=== PATIENT | female | born 1985 | race Caucasian/White ===

== ENCOUNTER 2021-06-21 12:24 | Inpatient (IN) | payer BC, MEDICAID, SELFPAY ==
--- NOTE | ~2021-06-21 | CT_ITS ---
EXAMINATION: CT orbit BI w con DATE: 06/21/2021 15:29 INDICATION: Left orbital cellulitis. TECHNIQUE: Computed tomography (CT) of the orbits was performed with 75 mL Omnipaque 300 intravenous contrast. Automated exposure control and iterative reconstruction technique were employed. The dose-l ength product was 173.13 mGy-cm. COMPARISON: CT maxillofacial 03/09/2010 FINDINGS: There is soft tissue swelling of the left periorbital region and left cheek. No orbital inv olvement. The extraocular muscles and optic nerves are normal. There is mild mucosal thickening in th e paranasal sinuses. The mastoid air cells are normal. IMPRESSION: 1. Soft tissue swelling of the left periorbital region and left cheek. No orbital involvement. Reviewed, dictated and finalized at location A. IMPRESSION: 1. Soft tissue swelling of the left periorbital region and left cheek. No orbit al involvement.
[2021-06-21 12:35] VITALS: BP 111/80; PULSE 102; RESP 18; TEMP 36.2; O2SAT 99
[2021-06-21] MEDS: SODIUM CHLORIDE 0.9% IV 1,000 ML 999 ML IV CONT (14:50)
[2021-06-21 14:52] LABS: Basophils Absolute Auto 0.1 K/mm3 (0.0-0.1); Basophils Percent Auto 0.7 % (0.2-1.2); Eosinophils Absolute Auto 0.3 K/mm3 (0-0.3); Eosinophils Percent Auto 3.9 % (0-4.4); Hematocrit 41.5 % (37.0-47.0); Hemoglobin 13.8 g/dL (12.0-15.0); Immature Granulocyte Absolute 0.03 K/mm3 (0.00-0.031); Immature Granulocyte Percent A 0.4 % (0-0.5); Lymphocytes Absolute Auto 2.65 K/mm3 (0.9-3.2); Lymphocytes Percent Auto 38.6 % (18.3-44.2); Mean Corpuscular HGB Conc 33.3 g/dl (32-36); Mean Corpuscular Hemoglobin 29.4 pg (26-34); Mean Corpuscular Volume 88.3 fl (80-100); Mean Platelet Volume 8.9 fl (7.4-10.4); Monocytes Absolute Auto 1.2 K/mm3 (0.1-0.6); Monocytes Percent Auto 16.8 % (2.6-8.5); Neutrophils Absolute Auto 2.7 K/mm3 (1.3-6.7); Neutrophils Percent Auto 39.6 % (45.5-73.1); Platelet Count Result 352 k/mm3 (150-375); Red Cell Distribution Width 13.2 % (11.5-14.5); White Blood Count 6.9 K/mm3 (4.5-10.0)
[2021-06-21 15:14] LABS: Alanine Aminotransferase 27 U/L (6-35); Alkaline Phosphatase 93 U/L (38-126); Anion Gap 11 mmol/L (8-16); Aspartate Amino Transferase 37 U/L (14-36); Bilirubin,Total 0.5 mg/dL (0.2-1.3); Blood Urea Nitrogen 22 mg/dL (7-17); Calcium 9.2 mg/dL (8.4-10.2); Carbon Dioxide 31 mmol/L (22-30); Chloride 96 mmol/L (98-107); Estimated CRCL calculation 60 ml/min; Estimated Glomerular Filt Rate > 60; Glucose 106 mg/dL (65-110); Lactate Dehydrogenase 538 U/L (313-618); Potassium 3.8 mmol/L (3.4-5.0); Sodium 138 mmol/L (137-145)
[2021-06-21 15:21] LABS: Lactic Acid Reflex 1.1 mmol/L (0.7-2.0)
--- NOTE | 2021-06-21 15:23 | ED.SKABFB ---
HPI - Skin/Abscess/Foreign Bdy General Chief complaint: Skin/Abscess/Foreign Body Stated complaint: eye problem Time Seen by Provider: 06/21/21 14:03 Source: patient Mode of arrival: ambulatory Limitations: no limitations History of Present Illness HPI narrative: 36-year-old female presents with increasing left eye redness, warmth, and pain. Patient states Friday she noticed what looked like a pimple to the left eyebrow. Patient went to [facility] care and was prescribed Bactrim for possible MRSA infection. Patient states wound has gotten bigger and now left eyelid is swollen. Patient denies fevers. Patient has no history of skin infection. MD complaint: abscess/boil Onset (ago): day(s) (4) Tetanus up to date: unsure Location: face Relieving factors: none Exacerbating factors: none Context: none Associated symptoms: denies other symptoms Treatments prior to arrival: none Related Data Home Medications Medication Instructions Recorded Confirmed No Home Medications 06/21/21 06/21/21 Allergies Allergy/AdvReac Type Severity Reaction Status Date / Time naproxen Allergy Mild Gastrointestinal Verified 06/21/21 13:47 Upset Penicillins Allergy Unresponsiv Verified 06/21/21 13:47 e Review of Systems Review of Systems: All systems reviewed & are unremarkable except as noted in HPI and below Constitutional: Constitutional: Reports no additional constitutional complaints Eyes: Eyes: Reports no additional eye complaints ENT: Reports system reviewed and no additional complaints, except as documented Cardiovascular: Cardiovascular: Reports no additional cardiovascular complaints Respiratory: Respiratory: Reports no additional respiratory complaints Gastrointestinal: Gastrointestinal: Reports no additional gastrointestinal complaints Genitourinary: Genitourinary: Reports no additional female genitourinary complaints Musculoskeletal: Musculoskeletal: Reports no additional musculoskeletal complaints Integumentary/Breasts: Skin/Breast: Reports erythema Neurologic: Reports system reviewed and no additional complaints, except as documented Psychiatric: Psychiatric: Reports no additional psychiatric complaints Endocrine: Endocrine: Reports no additional endocrine complaints Hematologic/Lymphatic: Hematologic/Lymphatic: Reports no additional hematologic/lymphatic complaints Allergic/Immunologic: Allergic/Immunologic: Reports no additional allergic/immunologic complaints Exam Narrative: General appearance: Well-developed, well-nourished Skin: Left eyebrow and upper lid redness, with swelling, open sore with no drainage, Head: Normocephalic, nontraumatic Eyes: Clear conjunctiva, normal extraocular movement ENT: Oropharynx normal, ears normal, nose normal Neck: Supple, nontender Chest and respiratory: Airway patent, no respiratory distress, no accessory muscle use Heart: Regular rate/rhythm Abdomen: Soft, nontender, no organomegaly, quiet bowel sounds Vascular: Normal peripheral pulses, normal capillary refill. Musculoskeletal: Normal range of motion, nontender back Neurologic: Alert and oriented ?3, FISH ICER is normal as tested, no gross motor deficit Course Course Emergency Course: Patient failed outpatient oral antibiotics. Patient will be admitted for IV antibiotics. Patient accepted by Yanique with the hospitalist team Consultations Consultation #1: Taina Chanel Date: 06/21/21 Time: 15:58 Vital Signs Vital signs: Vital Signs Temperature 36.2 C L 06/21/21 12:35 Pulse Rate 102 H 06/21/21 12:35 Respiratory Rate 18 06/21/21 12:35 Blood Pressure 111/80 06/21/21 12:35 Pulse Oximetry 99 06/21/21 12:35
--- NOTE | 2021-06-21 16:40 | PM.IMHP ---
H&P: HPI History of Present Illness Date/Time: 06/21/21 16:40 Chief Complaint: Left eyelid swelling. Narrative: This is a pleasant 36-year-old female smoker with history of MRSA skin and soft tissue infection who presented to the emergency department for evaluation of left eyelid swelling. About 10 days ago she developed a handful of small, scattered red papules on her face and to a lesser extent on the chest and back. Within several days time, the papules on her face grew in size and began to spontaneously drain serous fluid. She was seen at a local urgent care on Friday at which time she was prescribed Bactrim and prednisone of which she has been compliant. Several of the wounds around her mouth have dried out however 1 near her left eyebrow has continued to grow in size and yesterday she noticed redness and swelling about the left eyelid. It was worse this morning and she came in for evaluation. Orbital CT shows soft tissue swelling of the left periorbital region and left cheek and mild mucosal thickening in the paranasal sinuses, with no evidence of orbital involvement. At the time my evaluation she is resting comfortably. She does mention sinus congestion and rhinorrhea though she has blamed that on her allergies. Her left eyelid and eyebrow or uncomfortable but she is having no pain with extraocular motions. She denies fever, chills, and sweats. Appetite has been good and she has not had nausea or vomiting. To her knowledge, she has not been around anybody with similar symptoms or active MRSA though she was recently incarcerated for 1.5 months. Review of Systems Review of Systems: Twelve systems were reviewed and are negative except for as per HPI. [facility] Past Medical History Medical History (Updated 06/21/21 @ 22:18 by Yanique Pagan PA-C) Chronic back pain MRSA infection Nicotine dependence Osteoporosis Surgical History Surgical History (Updated 06/21/21 @ 22:14 by Yanique Pagan PA-C) History of 2 sections History of foot surgery History of tubal ligation History of tympanostomy tube placement History of wisdom tooth extraction Family History Family History Other Unknown family medical history Social History Social History (Updated 06/21/21 @ 22:14 by Yanique Pagan PA-C) Social History: Surrogate decision maker: Rigo Cortes, father. Code status: Full code. Smoking packs per day: 1 Smoking cigarettes per day: 20.0 Years smoked: 20 Smoking pack-years: 20.00 Smoking status: Current every day smoker Tobacco type: cigarettes Substance use: former Substance use type: does not use Other substance usage details: Former prescription opioid addiction. Additional living arrangements comments: Currently living with her mother in [place]. Additional occupation/education comments: Not currently employed. Spiritual care concerns: No Meds Home Medications and Allergies Home Medications Medication Instructions Recorded Confirmed Type No Home Medications 06/21/21 06/21/21 History Allergies Allergy/AdvReac Type Severity Reaction Status Date / Time naproxen Allergy Mild Gastrointestinal Verified 06/21/21 13:47 Upset Penicillins Allergy Unresponsiv Verified 06/21/21 13:47 e Vital Signs Vital Signs - 24 hr 06/21/21 12:35 Temperature 97.1 F L Pulse Rate 102 H Respiratory Rate 18 Blood Pressure 111/80 Pulse Oximetry 99 Exam Narrative: General: Well-developed female sitting up in bed in no distress. Weight: 54 kg. BMI: 23.3. HEENT: There is and proximally 1 cm circular, crusted wound over the left lateral eyebrow with surrounding erythema and edema tracking down to the left eyelid. Extraocular motions are intact. Pupils are equal and reactive. Several other scattered, crusted lesions around the mouth without evidence of acute infection. Moist mucous membranes. Neck: Supple
[2021-06-21 16:46] LABS: SARS-CoV-2 RNA PCR Negative
[2021-06-21] MEDS: NICOTINE (*PBKC) 21 MG PATCH 1 PATCH TRANSDERM (18:41)
--- NOTE | 2021-06-21 19:12 | PC.NURSE ---
Report taken from NIC Ruiz.
[2021-06-21 19:23] VITALS: BP 108/69; PULSE 77; RESP 16; O2SAT 100
[2021-06-21] MEDS: traMADol HCL (*CRX) 50 MG TABLET PO (19:29)
[2021-06-21 20:26] VITALS: BMI 23.2
--- NOTE | 2021-06-21 20:28 | ADMGEN ---
This patient, Madonna Cortes, was admitted to [facility] Surg Room 314-01. Patient/family oriented to hospital policies and general routines including ID bracelet, bed and alarms, visiting hours, pain management, procedures, bathroom and other care routines, personal items, smoking policy, room service/diet, and visiting hours. Information on how to activate the Rapid Response Team has been discussed. Patient/Family are encouraged to report perceived risks to care and to ask questions if they do not understand what they are told or what they should do.
[2021-06-21 20:36] VITALS: PULSE 71; RESP 16; O2SAT 100
[2021-06-21 20:42] VITALS: BP 124/65; PULSE 71; RESP 16; TEMP 36.3; O2SAT 100
[2021-06-21 22:35] VITALS: O2SAT 99
[2021-06-22 06:00] VITALS: BP 110/64; PULSE 74; RESP 16; TEMP 36.2; O2SAT 97
[2021-06-22] MEDS: ACETAMINOPHEN 325 MG TABLET 650 MG PO (10:30)
[2021-06-22] MEDS: NICOTINE (*PBKC) 21 MG PATCH 1 PATCH TRANSDERM (10:31)
[2021-06-22 13:56] VITALS: O2SAT 99
[2021-06-22 14:00] VITALS: BP 101/56; PULSE 63; RESP 16; TEMP 36.1; O2SAT 100
--- NOTE | 2021-06-22 14:30 | PM.IMPN ---
Progress Note: A&P Assessment and Plan (1) Periorbital cellulitis of left eye: Code(s): L03.213 - Periorbital cellulitis Status: Acute Assessment and Plan: Presented with left eyebrow wound with associated left periorbital edema Orbital CT showed soft tissue swelling of the left periorbital region and cheek with no orbital involvement Patient does have history of MRSA, suspect acute MRSA infection Continue IV ceftriaxone and vancomycin, day #2 Supportive care. Elevate head of bed. Ice. Warm compress. For evaluation of pustules, will proceed with HIV, RPR, varicella IgG/IgM, and CMV IgG/IgM Blood cultures pending Patient afebrile, no leukocytosis (2) Nicotine dependence: Code(s): F17.200 - Nicotine dependence, unspecified, uncomplicated Status: Acute Assessment and Plan: Patient smokes 1 pack per day Smoking cessation is imperative for wound healing Continue nicotine patch prior patient request (3) History of MRSA infection: Code(s): Z86.14 - Personal history of Methicillin resistant Staphylococcus aureus infection Status: Acute Assessment and Plan: MRSA nasal swab pending. Await results. Consider nasal mupirocin and chlorhexidine bath based on results Subjective Date/time seen: 06/22/21 14:30 Interval history: Date of service: 06/22/2021 Madonna Cortes is a 36-year-old female with a history of nicotine dependence osteoporosis, MRSA infection, and recent incarceration who is seen in follow up periorbital cellulitis. She continues to endorse eyelid swelling today. She has not noted much improvement. States it was worse this morning after she was laying down to sleep. Discussed keeping her head of bed elevated. She denies any drainage from the wound on her left eyelid. Denies pruritus. No visual changes. Reports typical visual acuity. Denies fevers, chills, nausea, vomiting. No shortness breath, cough, chest pain, palpitations dizziness, lightheadedness. Appetite is good. Denies drug use. Review of Systems Review of Systems: All systems reviewed & are unremarkable except as noted in HPI and below Exam Narrative: General: Well-nourished 36-year-old female, sitting up in bed, comfortable, NARD Neuro: awake, alert and oriented x4, speech clear, no focal neuro deficits noted HEENMT: normocephalic, atraumatic, EOMI, sclerae anicteric, erythema and edema of left upper eyelid Respiratory: clear to auscultation bilaterally, nonlabored breathing Cardio: regular rate, regular rhythm with S1-S2 Abdomen: nondistended, normoactive bowel sounds, soft, nontender to palpation Extremities: no edema, erythema, or tenderness to palpation, DP pulses 2+ bilaterally Skin: Approximately 1 cm circular superficial ulceration of the left upper eyebrow without purulence or drainage, surrounding edema and erythema of the eyelids, scattered crusted lesions surrounding the mouth, very few on chest and back, warm and dry Psych: appropriate mood and affect, judgment and insight intact Objective Data Vital Signs Vital Signs: Vital Signs - 24 hr 06/21/21 19:23 06/21/21 20:36 06/21/21 20:42 Temperature 97.3 F L Pulse Rate 77 71 71 Respiratory Rate 16 16 16 Blood Pressure 108/69 124/65 Pulse Oximetry 100 100 100 06/21/21 22:35 06/22/21 06:00 06/22/21 13:56 Temperature 97.2 F L Pulse Rate 74 Respiratory Rate 16 Blood Pressure 110/64 Pulse Oximetry 99 97 99 Intake/Output Intake/Output: Intake & Output 06/19/21 06/20/21 06/21/21 06/22/21 23:59 23:59 23:59 23:59 Intake Total 1250 1137 Balance 1250 1137 Meds/Results Medications: Active Medications Generic Name Dose Route Start Last Admin Trade Name Freq PRN Reason Stop Dose Admin Acetaminophen 650 mg 06/21/21 16:03 06/22/21 10:30 Acetaminophen 325 Mg Tablet PO 650 mg Q4H PRN Administration Mild Pain (1-3) or Fever Acetaminophen 650 mg 06/21/21 16:46 Acetami
[2021-06-22 15:50] LABS: HIV 1/2 Ab P24 Ag Result Negative (Negative)
[2021-06-22 21:50] VITALS: O2SAT 98
[2021-06-22 22:00] VITALS: BP 108/58; PULSE 68; RESP 18; TEMP 36.7; O2SAT 98
[2021-06-22] MEDS: HYDROcodone/acetaminophen (*CRX) 7.5-325 MG TABLET 1 TAB PO (23:11)
[2021-06-23 05:44] VITALS: BP 108/69; PULSE 77; RESP 17; TEMP 37.1; O2SAT 97
[2021-06-23] MEDS: NICOTINE (*PBKC) 21 MG PATCH 1 PATCH TRANSDERM (08:11)
[2021-06-23 10:39] LABS: Hematocrit 34.4 % (37.0-47.0); Hemoglobin 11.3 g/dL (12.0-15.0); Mean Corpuscular HGB Conc 32.8 g/dl (32-36); Mean Corpuscular Hemoglobin 29.4 pg (26-34); Mean Corpuscular Volume 89.4 fl (80-100); Mean Platelet Volume 8.8 fl (7.4-10.4); Platelet Count Result 289 k/mm3 (150-375); Red Blood Count 3.85 M/mm3 (4.2-5.4); Red Cell Distribution Width 12.9 % (11.5-14.5); White Blood Count 7.5 K/mm3 (4.5-10.0)
[2021-06-23 11:01] LABS: Anion Gap 5 mmol/L (8-16); Blood Urea Nitrogen 16 mg/dL (7-17); CRP 0.6 mg/dL (<1.0); Calcium 8.1 mg/dL (8.4-10.2); Carbon Dioxide 27 mmol/L (22-30); Chloride 105 mmol/L (98-107); Estimated CRCL calculation 67 ml/min; Estimated Glomerular Filt Rate > 60; Glucose 106 mg/dL (65-110); Potassium 4.5 mmol/L (3.4-5.0); Sodium 137 mmol/L (137-145)
--- NOTE | 2021-06-23 11:34 | PM.IMPN ---
Progress Note: A&P Assessment and Plan (1) Periorbital cellulitis of left eye: Code(s): L03.213 - Periorbital cellulitis Status: Acute Assessment and Plan: Presented with left eyebrow wound with associated left periorbital edema Orbital CT showed soft tissue swelling of the left periorbital region and cheek with no orbital involvement Patient does have history of MRSA, suspect acute MRSA infection Continue IV ceftriaxone and vancomycin, day #3 Supportive care. Elevate head of bed. Ice. Warm compress. For evaluation of pustules: HIV screening negative, RPR, varicella IgG/IgM, and CMV IgG/IgM pending Preliminary blood cultures negative to date Patient afebrile, no leukocytosis Improved on exam today. Monitor overnight and plan for discharge tomorrow on PO antibiotics if continued improvement (2) Nicotine dependence: Code(s): F17.200 - Nicotine dependence, unspecified, uncomplicated Status: Acute Assessment and Plan: Patient smokes 1 pack per day Smoking cessation is imperative for wound healing Continue nicotine patch per patient request (3) History of MRSA infection: Code(s): Z86.14 - Personal history of Methicillin resistant Staphylococcus aureus infection Status: Acute Assessment and Plan: MRSA nasal swab pending. Await results. Consider nasal mupirocin and chlorhexidine bath based on results Subjective Date/time seen: 06/23/21 11:34 Interval history: Date of service: 06/23/2021 Madonna Cortes is a 36-year-old female with a history of nicotine dependence osteoporosis, MRSA infection, and recent incarceration who is seen in follow up periorbital cellulitis. She is feeling better today. Feels that her swelling has improved. She is having less discomfort overall and rates her pain as 3/10 in the periorbital region. Denies visual changes. Denies facial pain. No congestion, no dysphagia, no speech changes. She reports no changes to the scattered crusted wounds around her mouth. Denies pruritus. Denies drainage or purulence from wounds. She has no additional concerns. Denies shortness of breath, cough, chest pain, nausea, vomiting, fever, chills, abdominal pain, headache. She is eating well, sleeping well, reports regular bowel movements and no issues with urination. She is eager for discharge home Review of Systems Review of Systems: All systems reviewed & are unremarkable except as noted in HPI and below Exam Narrative: General: Well-nourished 36-year-old female, sitting up in bed, comfortable, NARD Neuro: awake, alert and oriented x4, speech clear, no focal neuro deficits noted HEENMT: normocephalic, atraumatic, EOMI, sclerae anicteric, improved erythema and edema of left upper eyelid Respiratory: clear to auscultation bilaterally, nonlabored breathing Cardio: regular rate, regular rhythm with S1-S2 Abdomen: nondistended, normoactive bowel sounds, soft, nontender to palpation Extremities: no edema, erythema, or tenderness to palpation, DP pulses 2+ bilaterally Skin: Approximately 1 cm superficial ulceration of the left upper eyebrow without purulence or drainage, surrounding edema and erythema of the upper eyelid, scattered crusted lesions surrounding the mouth, very few on chest and back, warm and dry Psych: appropriate mood and affect, judgment and insight intact Objective Data Vital Signs Vital Signs: Vital Signs - 24 hr 06/22/21 13:56 06/22/21 14:00 06/22/21 21:50 Temperature 97 F L Pulse Rate 63 Respiratory Rate 16 Blood Pressure 101/56 L Pulse Oximetry 99 100 98 06/22/21 22:00 06/23/21 05:44 Temperature 98.0 F 98.8 F Pulse Rate 68 77 Respiratory Rate 18 17 Blood Pressure 108/58 L 108/69 Pulse Oximetry 98 97 Intake/Output Intake/Output: Intake & Output 06/20/21 06/21/21 06/22/21 06/23/21 23:59 23:59 23:59 23:59 Intake Total 1250 3017 540 Balance 1250 3017 540 Meds/Results Medications: Activ
[2021-06-23 14:00] VITALS: BP 94/57; PULSE 69; RESP 18; TEMP 36.6; O2SAT 99
[2021-06-23 21:54] VITALS: BP 104/57; PULSE 81; RESP 18; TEMP 36.4; O2SAT 97
[2021-06-23 21:56] LABS: Vancomycin Trough 5.3 ug/mL (10.0-20.0)
[2021-06-23] MEDS: ACETAMINOPHEN 325 MG TABLET 650 MG PO (22:48)
[2021-06-24 06:00] VITALS: BP 105/56; PULSE 64; RESP 18; TEMP 36.7; O2SAT 97
[2021-06-24 07:52] LABS: Hematocrit 38.1 % (37.0-47.0); Hemoglobin 12.5 g/dL (12.0-15.0); Mean Corpuscular HGB Conc 32.8 g/dl (32-36); Mean Corpuscular Hemoglobin 29.4 pg (26-34); Mean Corpuscular Volume 89.6 fl (80-100); Mean Platelet Volume 8.9 fl (7.4-10.4); Platelet Count Result 326 k/mm3 (150-375); Red Blood Count 4.25 M/mm3 (4.2-5.4); Red Cell Distribution Width 12.9 % (11.5-14.5); White Blood Count 4.5 K/mm3 (4.5-10.0)
[2021-06-24 08:03] LABS: Anion Gap 4 mmol/L (8-16); Blood Urea Nitrogen 15 mg/dL (7-17); Calcium 8.4 mg/dL (8.4-10.2); Carbon Dioxide 30 mmol/L (22-30); Chloride 103 mmol/L (98-107); Estimated CRCL calculation 67 ml/min; Estimated Glomerular Filt Rate > 60; Glucose 93 mg/dL (65-110); Potassium 4.5 mmol/L (3.4-5.0); Sodium 137 mmol/L (137-145)
[2021-06-24] MEDS: ACETAMINOPHEN 325 MG TABLET 650 MG PO (08:03)
[2021-06-24] MEDS: NICOTINE (*PBKC) 21 MG PATCH 1 PATCH TRANSDERM (08:04)
--- NOTE | 2021-06-24 09:48 | PM.DS ---
DS: Admitting Diagnosis Discharge Date 06/24/2021 Admitting Diagnosis Periorbital cellulitis DS: Discharge Diagnosis Discharge Diagnosis (1) Periorbital cellulitis of left eye: Code(s): L03.213 - Periorbital cellulitis Status: Acute Assessment and Plan: Presented with left eyebrow wound with associated left periorbital edema Orbital CT showed soft tissue swelling of the left periorbital region and cheek with no orbital involvement Most likely acute MRSA infection given patient's history of MRSA Managed with IV vancomycin and ceftriaxone during admission with symptomatic improvement Continue p.o. doxycycline and cefdinir for 10 days on discharge Supportive care. Elevate head of bed. Ice. Warm compress. Preliminary blood cultures negative to date. Final cultures will be monitored Patient remained afebrile without leukocytosis (2) Rash: Code(s): R21 - Rash and other nonspecific skin eruption Status: Acute Assessment and Plan: Patient presented following eruption of pustular rash 10 days prior to presentation that had drained and subsequently dried Etiology for this unclear. HIV screen negative. RPR nonreactive. Varicella IgG/IgM, and CMV IgG/IgM pending and will be monitored (3) Nicotine dependence: Code(s): F17.200 - Nicotine dependence, unspecified, uncomplicated Status: Acute Assessment and Plan: Patient smokes 1 pack per day Smoking cessation is imperative for wound healing Patient educated on smoking cessation for 5 minutes Nicotine patch provided during admission per patient request (4) History of MRSA infection: Code(s): Z86.14 - Personal history of Methicillin resistant Staphylococcus aureus infection Status: Acute Assessment and Plan: MRSA nasal swab positive Patient is a MRSA colonizer Continue with anti MRSA antibiotics. Plan as above DS: Summary Hospital Course Hospital Course: Date of admission: 06/21/2021 Date of discharge: 06/24/2021 Madonna Cortes is a 36-year-old female with a history of nicotine dependence osteoporosis, MRSA infection, and recent incarceration who presented to the emergency department with swelling in her left upper eyelid with associated erythema and pain. She had been taking Bactrim for 3 days prior to presentation however the eyelid swelling did not improve. On presentation to the emergency department, she was afebrile, vital signs stable, white blood cell count normal, and orbital CT will with soft tissue swelling without orbital involvement. She was admitted to the hospitalist service for further evaluation and management. Please see above for further details. She had improvement following IV antibiotic therapy and will continue with anti MRSA antibiotics to complete total 10 day course. She was feeling significantly improved was eager for discharge home. Given overall improvement, she was determined to no longer require inpatient care and was discharged in hemodynamically stable condition on 06/24/2021. We discussed worrisome signs and symptoms for which to return and she was educated on her medications. She will follow-up with on-call primary care physician and will establish care with a PCP. Status at Discharge Functional status at discharge: independent ambulation Overall status at discharge: patient is progressing back to baseline Time Spent with Patient Time attestation: Total time spent providing and/or coordinating discharge services: 45 minutes Time spent: Greater than 30 minutes Exam Narrative: General: Well-nourished 36-year-old female, sitting up in bed, comfortable, NARD Neuro: awake, alert and oriented x4, speech clear, no focal neuro deficits noted HEENMT: normocephalic, atraumatic, EOMI, sclerae anicteric, improved erythema and edema of left upper eyelid Respiratory: clear to auscultation bilaterally, nonlabored breathing Cardio: regular rate, regular rhythm wi
[2021-06-25 09:45] LABS: Rapid Plasma Reagin Non-Reactive (NonReactive)
[2021-06-26 09:15] LABS: CMV IgG Antibody <0.60 U/mL (<0.60)
[2021-06-26 14:01] LABS: Varicella IgM Antibody <=0.90 (<=0.90)
--- NOTE | 2021-06-27 10:40 | PC.NURSE ---
Varicella IgG- WNL at 886.90, IgM WNL at <= 0.90 CMV IgG WNL at <.60
[2021-06-28 16:27] LABS: CMV IgM Antibody <30.00 AU/mL (<30.00)
--- NOTE | 2021-07-04 12:51 | PC.NURSE ---
CMV IgM is <30.00. WNL.
== END 2021-06-24 11:51 | disposition home or self-care (01) | DRG 603 ==
LOC: ANHED 16:00 → ANH3MEDSUR 18:50
PROVIDERS: Admitting Provider Student in an Organized Health Care Education/Training Program; Emergency Provider Nurse Practitioner Family; Visit Provider Physician Assistant
DX: L03.213 Periorbital cellulitis (principal); Z20.822 Contact with and (suspected) exposure to COVID-19; F17.210 Nicotine dependence, cigarettes, uncomplicated; M81.0 Age-related osteoporosis without current pathological fracture; G89.29 Other chronic pain; Z86.14 Personal history of Methicillin resistant Staphylococcus aureus infection
CPT/HCPCS: 36415; 70481; 80048; 80053; 80202; 81025; 83605; 83615; 85025; 85027; 86140; 86592; 86644; 86645; 86703; 86787; 87040; 87081; 96361; 96365; 96366; 96367; 99285; A9270; C9803; G0378; G0432; J0696; J3370; J7030; Q9967; U0003; U0005